=== PATIENT | male | born 1925 | race Caucasian/White ===

== ENCOUNTER 2017-01-10 19:19 | Inpatient (IN) | payer MEDICARE, BC, OTHER ==
[~2017-01-10] VITALS: Ht 175.3 cm; Wt 65.7 kg
[~2017-01-10 19:19] MED LIST: CORE12.5 PO; FOLI1 PO; LIPI40TA PO; MORP15IN3 IMPLANPUMP; OXYBXL10 PO; PROT40TA PO; ROPI2 PO; ST J81CH PO; TAMS0.4C67
[2017-01-10 19:29] VITALS: BP 149/67; PULSE 70; RESP 18; TEMP 97.8; O2SAT 96
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
[2017-01-10 20:23] LABS: AUTOMATED NEUTROPHIL # 2.9 TH/MM3 (1.8-7.7); BASOPHIL % 0.8 % (0.0-2.0); EOSINOPHIL # 0.2 TH/MM3 (0-0.4); EOSINOPHIL % 3.2 % (0.0-4.0); HEMATOCRIT 32.9 % (39.0-51.0); LYMPH % 24.8 % (9.0-44.0); LYMPHOCYTE # 1.2 TH/MM3 (1.0-4.8); MEAN CELL VOLUME 92.8 FL (80.0-100.0); MEAN CORPUSCULAR HEMOGLOBIN 30.7 PG (27.0-34.0); MONO % 9.3 % (0.0-8.0); NEUT % 61.9 % (16.0-70.0); PLATELET COUNT 91 TH/MM3 (150-450); RED BLOOD COUNT 3.54 MIL/MM3 (4.50-5.90); RED CELL DISTRIBUTION WIDTH 16.1 % (11.6-17.2); WHITE BLOOD COUNT 4.7 TH/MM3 (4.0-11.0)
[2017-01-10 20:26] LABS: HEMO FLAGS AUTO DIFF
[2017-01-10] MEDS ORDERED: ROSU10 PO (20:34)
[2017-01-10] MEDS ORDERED: ELMI100C PO (20:34)
[2017-01-10] MEDS ORDERED: AMAR4TAB PO (20:34)
[2017-01-10] MEDS ORDERED: ACTO30TA10 PO (20:34)
[2017-01-10] MEDS ORDERED: RELAFEN PO (20:34)
[2017-01-10] MEDS ORDERED: JANU50TA8 PO (20:34)
[2017-01-10] MEDS ORDERED: CHOL1CAP6 PO (20:34)
[2017-01-10] MEDS ORDERED: CITR500T PO (20:34)
[2017-01-10] MEDS ORDERED: CETI10CA3 PO (20:34)
[2017-01-10] MEDS ORDERED: TRAM50TA PO (20:34)
[2017-01-10] MEDS ORDERED: HYDR-3516 PO (20:34)
[2017-01-10] MEDS ORDERED: DIOV80TA4 PO (20:34)
[2017-01-10] MEDS ORDERED: OMEP20TA PO (20:34)
[2017-01-10] MEDS ORDERED: MULT-182 PO (20:34)
[2017-01-10] MEDS ORDERED: ASPI81CH7 CHEW (20:34)
[2017-01-10] MEDS ORDERED: MONT10TA2 PO (20:34)
[2017-01-10 20:46] LABS: ANION GAP 8 MEQ/L (5-15); AST (GOT) 8 U/L (15-37); BICARBONATE 31.4 MEQ/L (21.0-32.0); BLOOD UREA NITROGEN 38 MG/DL (7-18); CHLORIDE 105 MEQ/L (98-107); GLOMERULAR FILTRATION RATE 32 ML/MIN (>89); POTASSIUM 3.8 MEQ/L (3.5-5.1); SODIUM (NA) 144 MEQ/L (136-145)
[2017-01-10 20:50] LABS: ACETAMINOPHEN LESS THAN 2.0 MCG/ML (10.0-30.0); ALKALINE PHOSPHATASE 83 U/L (45-117); ALT (GPT) 16 U/L (12-78); TOTAL BILIRUBIN ADULT 0.4 MG/DL (0.2-1.0)
[2017-01-10 20:51] LABS: PLATELET ESTIMATE SMEAR LOW (NORMAL); PLATELET MORPHOLOGY NORMAL (NORMAL); SCAN/DIFF AUTO DIFF CONFIRMED
[2017-01-10 23:54] LABS: AMPHETAMINE, URINE NEG (NEG); BARBITURATES, URINE NEG (NEG); COCAINE, URINE NEG (NEG)
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
[2017-01-11 08:30] VITALS: BP 175/85; PULSE 70; RESP 16; O2SAT 96
[2017-01-11] MEDS ORDERED: PERC10TA27 PO (09:21)
[2017-01-11] MEDS ORDERED: VALSARTAN 80 MG TAB PO ONE (09:30)
[2017-01-11 11:21] VITALS: BP 166/77; PULSE 70; RESP 18; O2SAT 97
[2017-01-11 14:08] VITALS: BP 174/94; PULSE 70; RESP 20; O2SAT 97
[2017-01-11 17:37] VITALS: BP 171/69; PULSE 76; RESP 18; O2SAT 97
[2017-01-11] MEDS ORDERED: LORazepam 0.5 MG TAB PO PRN (19:00)
[2017-01-11] MEDS ORDERED: LORazepam 1 MG TAB PO PRN (19:00)
[2017-01-11] MEDS ORDERED: MAGNESIUM HYDROXIDE SUSP 30 ML CUP PO PRN (19:00)
[2017-01-11] MEDS ORDERED: LORazepam 2 MG/ML VIAL IM PRN ×2 (19:00)
[2017-01-11] MEDS ORDERED: ALUMINUM/MAGNESIUM/SIMETH 30 ML CUP PO PRN (19:00)
[2017-01-11] MEDS ORDERED: ACETAMINOPHEN 325 MG TAB PO PRN (19:00)
[2017-01-11 19:19] VITALS: BP 156/70; PULSE 70; RESP 16; O2SAT 97
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
--- NOTE | 2017-01-11 20:03 | RADRPT ---
EXAM DATE/TIME: 01/11/2017 19:42 [facility] COMPARISON: No previous studies available for comparison. INDICATIONS : Altered mental status. RADIATION DOSE: 56.35 CTDIvol (mGy) MEDICAL HISTORY : Cardiovascular disease. Hypertension. SURGICAL HISTORY : None. ENCOUNTER: Initial ACUITY: 1 day PAIN SCALE: 0/10 LOCATION: Bilateral head TECHNIQUE: Multiple contiguous axial images were obtained of the head. Using automated exposure control and adj ustment of the mA and/or kV according to patient size, radiation dose was kept as low as reasonably a chievable to obtain optimal diagnostic quality images. FINDINGS: CEREBRUM: Scattered areas of low attenuation. Old bilateral lacunar infarcts The ventricles are normal for age. No evidence of midline shift, mass lesion, hemorrhage or acute infarction. No extra-axial fluid co llections are seen. POSTERIOR FOSSA: The cerebellum and brainstem are intact. The 4th ventricle is midline. The cerebellopontine angle i s unremarkable. EXTRACRANIAL: The visualized portion of the orbits is intact. SKULL: The calvaria is intact. No evidence of skull fracture. CONCLUSION: Nonspecific white matter changes. Old lacunar infarcts. Rk Moura MD on January 11, 2017 at 19:59 Board Certified Radiologist. This report was verified electronically.
[2017-01-11 20:15] VITALS: BP 166/73; PULSE 70; RESP 18; TEMP 98.4; O2SAT 97
[2017-01-12 05:54] VITALS: BP 149/70; PULSE 70; RESP 18; TEMP 97.6; O2SAT 96
[2017-01-12 08:10] LABS: AUTOMATED NEUTROPHIL # 3.6 TH/MM3 (1.8-7.7); BASOPHIL # 0.1 TH/MM3 (0-0.2); BASOPHIL % 0.9 % (0.0-2.0); EOSINOPHIL # 0.2 TH/MM3 (0-0.4); EOSINOPHIL % 4.4 % (0.0-4.0); HEMATOCRIT 37.7 % (39.0-51.0); LYMPHOCYTE # 1.2 TH/MM3 (1.0-4.8); MEAN CELL VOLUME 93.6 FL (80.0-100.0); MEAN CORPUSCULAR HGB CONC 32.1 % (32.0-36.0); MONO % 7.4 % (0.0-8.0); NEUT % 65.3 % (16.0-70.0); PLATELET COUNT 86 TH/MM3 (150-450); RED BLOOD COUNT 4.02 MIL/MM3 (4.50-5.90); RED CELL DISTRIBUTION WIDTH 15.5 % (11.6-17.2); WHITE BLOOD COUNT 5.5 TH/MM3 (4.0-11.0)
[2017-01-12 08:14] LABS: HEMO FLAGS AUTO DIFF
[2017-01-12 08:51] LABS: ALT (GPT) 18 U/L (12-78); ANION GAP 6 MEQ/L (5-15); AST (GOT) 11 U/L (15-37); BICARBONATE 31.6 MEQ/L (21.0-32.0); BLOOD UREA NITROGEN 27 MG/DL (7-18); CHLORIDE 106 MEQ/L (98-107); GLOMERULAR FILTRATION RATE 57 ML/MIN (>89); POTASSIUM 4.1 MEQ/L (3.5-5.1); SODIUM (NA) 144 MEQ/L (136-145)
[2017-01-12 08:55] LABS: PLATELET ESTIMATE SMEAR LOW (NORMAL); PLATELET MORPHOLOGY NORMAL (NORMAL); SCAN/DIFF AUTO DIFF CONFIRMED
[2017-01-12 09:07] LABS: ALKALINE PHOSPHATASE 83 U/L (45-117); HDL CHOLESTEROL 60.3 MG/DL (40.0-60.0); LDL CHOLESTEROL 52 MG/DL (0-99); TOTAL BILIRUBIN ADULT 0.5 MG/DL (0.2-1.0)
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
[2017-01-12 11:41] LABS: HEMOGLOBIN A1a 1.2 %; HEMOGLOBIN A1b 1.9 %; HEMOGLOBIN Ao 83.6 %; HEMOGLOBIN LA1C 2.4 %; HEMOGLOBIN P3 6.3 %
--- NOTE | 2017-01-12 14:33 | EKG ---
Date Performed: 01/11/2017 Time Performed: 19:59:54 PTAGE: 89 years EKG: Dual chamber pacing with sensed ventricular premature beat ABNORMAL ECG NO PREVIOUS TRACING DOCTOR: Yoel Guevara Interpretating Date/Time 01/12/2017 14:32:07
== END 2017-01-12 11:10 | disposition home or self-care (01) | DRG 882 ==
LOC: NEPD 19:19 → NEDA 01-11 18:56 → H250 01-11 20:15
PROVIDERS: ADMIT Psychiatry & Neurology Psychiatry; ATTEND Psychiatry & Neurology Psychiatry
DX: F43.25 Adjustment disorder with mixed disturbance of emotions and conduct (principal); I10 Essential (primary) hypertension; H91.93 Unspecified hearing loss, bilateral; Z96.653 Presence of artificial knee joint, bilateral; K21.9 Gastro-esophageal reflux disease without esophagitis
CPT/HCPCS: 70450; 80053; 80061; 80307; 82306; 82607; 83036; 84443; 85025; 93005